=== PATIENT | male | born 1990 | race Caucasian/White ===

== ENCOUNTER 2022-10-15 15:34 | Emergency (ER) | payer SELFPAY ==
[~2022-10-15] VITALS: Ht 167.6 cm; Wt 130.0 kg
[2022-10-15 15:53] VITALS: BP 133/70; O2SAT 99
[2022-10-15 17:19] LABS: BASOPHILS % 0.4 % (0.0-2.0); EOSINOPHILS % 0.3 % (0.0-5.0); HEMATOCRIT. 48.1 % (42.0-52.0); HEMOGLOBIN. 16.4 g/dL (14.0-18.0); LYMPHOCYTES % 26.1 % (20.0-50.0); MEAN CORPUSCULAR HEMOGLOBIN 30.6 pg (28.0-32.0); MEAN CORPUSCULAR HGB CONC 34.2 g/dL (31.0-37.0); MEAN CORPUSCULAR VOLUME 89.3 fL (80.0-94.0); MEAN PLATELET VOLUME 10.2 fl (7.4-10.4); MONOCYTES % 7.7 % (2.0-8.0); NEUTROPHILS % 65.5 % (40.0-76.0); PLATELET 148 x1000/uL (130-400); RED BLOOD CELL COUNT 5.38 mill/uL (4.7-6.1); RED CELL DISTRIBUTION WIDTH 14.2 % (11.6-14.6)
[2022-10-15 17:25] LABS: CHLORIDE 104 mEq/L (98-107); INDEX HEMOLYSI 1 (1-3); INDEX ICTERIC 1 (1-4); INDEX LIPEMIC 1 (1-3); POTASSIUM 4.5 mEq/L (3.5-5.1); SODIUM 136 mEq/L (136-145)
[2022-10-15 17:36] LABS: ALANINE AMINOTRANSFERASE 74 IU/L (13-61); ALBUMIN 4.2 g/dL (3.4-5.0); ASPARTATE AMINOTRANSFERASE 39 IU/L (15-37); BILIRUBIN TOTAL 0.7 mg/dL (0.1-1.0); CALCIUM 9.1 mg/dL (8.5-10.1); CARBON DIOXIDE 26 mEq/L (21-32); CREATININE 0.8 mg/dL (0.6-1.3); GLUCOSE 96 mg/dL (70-105); NT PRO B-TYPE NATRIURETIC PEP 19 pg/mL (5-125); PROTEIN TOTAL 7.8 g/dL (6.0-8.3); TROPONIN I HIGH SENSITIVITY 4 ng/L (<78); UREA NITROGEN BLOOD 9 mg/dL (7-21)
[2022-10-15] MEDS ORDERED: ALBUTEROL (0.083%) 2.5MG/3ML NEB HHN STA (20:05)
[2022-10-15] MEDS ORDERED: IPRATROPIUM BROMIDE (0.02%) 0.5MG/2.5ML NEB HHN STA (20:05)
[2022-10-15 21:57] VITALS: PULSE 88; RESP 18
[2022-10-15] MEDS: IPRATROPIUM BROMIDE (0.02%) 0.5MG/2.5ML NEB HHN NR (21:59)
[2022-10-15] MEDS: ALBUTEROL (0.083%) 2.5MG/3ML NEB HHN NR (21:59)
[2022-10-15] MEDS ORDERED: ALBU6.7H3 INH (22:11)
[2022-10-15 22:31] VITALS: PULSE 88; RESP 18; TEMP 98.7
== END 2022-10-15 22:32 | disposition home or self-care (01) ==
LOC: ER 15:34
DX: B34.9 Viral infection, unspecified (principal); I10 Essential (primary) hypertension; R42 Dizziness and giddiness
CPT/HCPCS: 80053; 83880; 85025; 84484; 36415; 71045; 93005; 94644; 99285; 87426; Z7610; C9803